=== PATIENT | male | born 1985 | race Hispanic/Latino ===

== ENCOUNTER 2021-02-09 19:22 | Emergency (ER) | payer SELFPAY ==
--- NOTE | 2021-02-09 20:42 | Emergency Department Report ---
Abscess Boil HPI - HPI Chief Complaint: Skin/Abscess/Foreign Body Stated Complaint: ABSCESS ON CHIN Time Seen by Provider: 02/09/21 20:37 Duration: 2 Days Location: Other ([place]) Severity: Moderate History: Yes Pain, No Fever, No Purulent Drainage, No Numbness, No Foreign Body, No Previous History, No Insect Bite HPI: Pt presents to ED with c/o tender swollen area to chin. He states it started 2 days ago. He states it was small but has since increased in size and more painful. He states he did shave about 1 week ago. He admits he has bad mihir th and is not sure if it is related to teeth. He denies fever or chills or any other symptoms at this time. Home Medications: Previous Rx's Medication Instructions Recorded Last Taken Type Clindamycin [Clindamycin CAP] 300 mg PO Q6H #40 cap 02/09/21 Unknown Rx Ibuprofen [Motrin] 800 mg PO Q8HR PRN #30 tablet 02/09/21 Unknown Rx traMADoL [Ultram] 50 mg PO Q4HR PRN #12 tablet 02/09/21 Unknown Rx ED Review of Systems ROS: Stated complaint: ABSCESS ON CHIN Other details as noted in HPI Comment: All other systems reviewed and negative Constitutional: denies: chills, fever Skin: lesions, other (tender swollen area chin ) Neurological: denies: headache, weakness, numbness, paresthesias, confusion, abnormal gait, vertigo Psychiatric: denies: anxiety, depression, auditory hallucinations, visual hallucinations, homicidal thoughts, suicidal thoughts Hematological/Lymphatic: denies: easy bleeding, easy bruising ED Past Medical Hx - Past Medical History Previous Medical History?: No - Surgical History Past Surgical History?: No - Social History Smoking Status: Current Every Day Smoker Substance Use Type: None - Medications Home Medications: Home Medications Medication Instructions Recorded Confirmed Last Taken Type Clindamycin [Clindamycin CAP] 300 mg PO Q6H #40 cap 02/09/21 Unknown Rx Ibuprofen [Motrin] 800 mg PO Q8HR PRN #30 tablet 02/09/21 Unknown Rx traMADoL [Ultram] 50 mg PO Q4HR PRN #12 tablet 02/09/21 Unknown Rx ED Abscess Boil Physical Exam - Exam General: Vital signs noted. No distress. Alert and acting appropriately. Size: 4 cm (4cm x 3cm) Exam: Yes Tenderness, Yes Normal Neurologic Exam, Yes Normal Circulation, No Fluctuance, No Surrounding Cellulites/Erythema, No Lymphangitis, No Crepitation, No Heart Murmur Exam: ~4cm x 3cm indurated mildly erythematous area noted to chin with mod ttp. No streaking cellulitis. No flucutance or pointing. No involvement of submandibular area or neck. He has poor dentition but No apparent dental abscess. ED Course Vital Signs 02/09/21 20:35 Temperature 98.4 F Pulse Rate 98 H Respiratory 18 Rate Blood Pressure 132/71 O2 Sat by Pulse 97 Oximetry Critical care attestation.: If time is entered above; I have spent that time in minutes in the direct care of this critically ill patient, excluding procedure time. ED Medical Decision Making - Medical Decision Making Area to chin mainly indurated. No fluctuance appreciated on exam. No significant cellulitis. It appears to more of a soft tissue infection than dental abscess. HE has not neck or throat involvement. No trismus, or drooling. He is not toxic or ill appearing and he is not in any respiratory or significant pain dis tress. Pt opted to try antibiotics, warm compresses and pain meds at this time. But he understands to return to ED if symptoms worsens in any way. ED Disposition Clinical Impression: Abscess or cellulitis of chin Disposition: -01 TO HOME OR SELFCARE Is pt being admited?: No Does the pt Need Aspirin: No Condition: Stable Instructions: Skin Abscess, [id number] Additional Instructions: Take the clindamycin as prescribed. Take the motrin and the ultram as prescribed. I recommend warm compresses 2-3 time per day. Return to ED if symptoms worsens or not getting better despite taking the antibiotics. Prescriptions: Clindamycin [Clindamycin CAP] 300 mg PO Q6H #40 cap Ibuprofen [Motrin] 800 mg PO Q8HR PRN #30 tablet PRN Reason: pain traMADoL [Ultram] 50 mg PO Q4HR PRN #12 tablet PRN Reason: Pain Referrals: LOKI FAULKNER MD [Staff Physician] - 3-5 Days Time of Disposition: 20:45
== END 2021-02-09 22:00 | disposition home or self-care (01) ==
LOC: ED 19:22
CPT/HCPCS: 99282